=== PATIENT | female | born 1970 | race Caucasian/White ===

== ENCOUNTER 2018-02-25 08:39 | Day surgery (SDC) | payer BC ==
[2018-02-23 08:40] VITALS: BMI 42.5
[~2018-02-25 08:39] MED LIST: LACTATED RINGERS 1,000 ML IV SCH; LIDOCAINE 1% 20 ML VIAL (10MG/ML) FOR IV START INTRADERMA PRN
[2018-02-25 09:30] VITALS: TEMP 97.1
[2018-02-25] MEDS ORDERED: PROPOFOL 10 MG/ML 20 ML VIAL IV ONE (10:11)
--- NOTE | 2018-02-25 10:29 | P.PCN ---
Date of Procedure: 02/25/18 Procedure(s) Performed: BRIEF HISTORY: Patient is a 47-year-old pleasant white female, scheduled for an elective colonoscopy as a part of evaluation of change in bowel habits, intermittent rectal bleeding and lower abdominal pain for the last 2 months duration. She has family history of colon cancer diagnosed in her father at age 50. PROCEDURE PERFORMED: Colonoscopy and snare polypectomy. PREOPERATIVE DIAGNOSIS: Lower abdominal pain, change in bowel habits and intermittent rectal bleeding/family history of colon cancer. IV sedation per Anesthesia. PROCEDURE: After informed consent was obtained, the patient, was brought into the endoscopy unit. IV sedation was administered by Anesthesia under continuous monitoring. Digital rectal examination was normal. Initially the Olympus CF- 160 flexible video colonoscope was then inserted in the rectum, gradually advanced into the cecum without any difficulty. Careful examination was performed as the scope was gradually being withdrawn. Ileocecal valve and the appendiceal orifice were visualized and appeared normal. Prep was excellent. Mucosa of the cecum, ascending colon, transverse colon, descending colon, sigmoid colon, and rectum appeared normal. In the mid rectum there was a 5 mm sessile polyp removed by snare polypectomy. Retroflexion was performed in the rectum and no lesions were seen. The patient tolerated the procedure well. IMPRESSION: 5 m sessile rectal polyp status post polypectomy Rest of the colon appeared normal. RECOMMENDATIONS: Findings of this examination were discussed with the patient as well as a family. She was advised to follow with the biopsy results. If the biopsy shows a tubular adenoma, she can have a repeat coloscopy in 5 years.
[2018-02-25 10:58] VITALS: BP 107/59; PULSE 70; RESP 16
== END 2018-02-25 11:19 | disposition home or self-care (01) ==
LOC: ORWHC2ENDO 08:39
PROVIDERS: ATTEND Internal Medicine Gastroenterology
DX: K62.1 Rectal polyp (principal); Z80.0 Family history of malignant neoplasm of digestive organs; I10 Essential (primary) hypertension; Z90.5 Acquired absence of kidney; Z79.899 Other long term (current) drug therapy
CPT/HCPCS: 81025; 88305; 45385; J2704

== ENCOUNTER → 2018-04-15 | Outpatient (CLI) | payer BC ==
--- NOTE | 2018-04-15 19:43 | CONS ---
CONSULTATION REASON FOR CONSULTATION: Sleep apnea. This is a 47-year-old female patient, obese who is coming in due to concerns of sleep apnea. The patient has been excessively sleepy. She tells me that she can fall asleep at any time. She takes naps during the day as the patient feels very drowsy and sleepy. She typically goes to bed around 10:00 pm, wakes up at 5:00 a.m. in the morning and she gets up non refreshed. Her sleep is fragmented and she wakes up several times in the middle of night to use the bathroom and urinate. She prefers to sleep on her side. Her [place] score is at 20. She snores very loud and this has been confirmed by family members. Unsure if she quits breathing. She does have nocturia which is obviously another concern. She is interested in pursing diagnosis of sleep apnea. This was suggested to her by primary care physician and her chief electrician. She sees Dr. Yin for frequent episodes of SVT that is becoming more abundant and frequent lately. She is being considered for ablation and she is scheduled to have a SVT ablation on 04/30/2018. PAST MEDICAL HISTORY: Obesity, hypertension and SVT. PAST SURGICAL HISTORY: Includes kidney donation. 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 The surgery was done at [facility]. She has a single kidney for now. DRUG ALLERGIES: Not known. MEDICATIONS ARE: Atenolol 25 mg 1 tablet a day. SOCIAL HISTORY: Nonsmoker. No history of alcohol. No history of IV drugs. FAMILY HISTORY: Father had chronic renal failure and he 40 days after transplantation. REVIEW OF SYSTEM: 12-point review of systems was done. She is obese. Weight has been stable. She is snoring loud. Occasionally grinds her teeth. Wakes up with dry mouth. No anxiety or panic attacks. No palpitations. No heartburn. No nocturnal shortness of breath, chest pain or angina. No depression. No anxiety. No claustrophobia. No anxiety or panic attacks. No night terrors, no nightmares. No sleep paralysis. No hallucinations. No cataplexy. PHYSICAL EXAMINATION: VITAL SIGNS: BP 133/81, pulse 72, respirations 16, temperature 97.9. Saturation 99% on room air. Weight is 280. Height 5 feet 6 inches, [place] score is 20. BMI 44.5, neck size 16 inches. GENERAL APPEARANCE: Calm and comfortable. HEENT: Head is atraumatic, normocephalic. NECK: Short supple, crowding of the posterior pharynx, Mallampati class 4. LUNGS: Clear to auscultation. HEART: Sounds regular rate and rhythm. Normal S1, S2. No S3. No S4. No murmurs. ABDOMEN is soft, nontender. No organomegaly. EXTREMITIES: No edema. No cyanosis or clubbing. IMPRESSION: 1. Hypersomnia under investigation highly suspicious for obstructive sleep apnea. Current [place] score is 20. 2. Loud snoring. 3. Nocturia. 4. Obesity with a BMI of 44.5. 5. Supraventricular tachycardias frequent, awaiting cardiac ablation. 6. Hypertension. 7. Single kidney as the patient has donated her right kidney in the past. PLAN: 1. Encourage weight loss. 2. Proceed with ablation of SVT. 3. Proceed with a home sleep study to evaluate this patient for obstructive sleep apnea and if diagnosis is confirmed, the patient will be a good candidate for CPAP therapy based on the fact that she is quite symptomatic for her disease. 4. Implement good sleep hygiene measures. 5. Avoid alcoholic beverages late at night time. 6. Sleep in a sidewise body position. 7. We will continue to follow. MMODL / IJN: [id number] /
== END | disposition home or self-care (01) ==
LOC: SLEEP 13:41
PROVIDERS: ATTEND Internal Medicine Critical Care Medicine
DX: R06.83 Snoring (principal); R35.1 Nocturia; E66.9 Obesity, unspecified; Z68.41 Body mass index [BMI] 40.0-44.9, adult; I47.1 Supraventricular tachycardia; I10 Essential (primary) hypertension
CPT/HCPCS: 99211

== ENCOUNTER 2018-04-30 10:52 | Day surgery (SDC) | payer BC ==
[2018-04-27 14:28] VITALS: BMI 41.8
[2018-04-30 11:59] LABS: Anisocytosis Slight; Basophils % (A) 0 %; Eosinophils # (A) 0.1 k/uL (0-0.7); Eosinophils % (A) 2 %; HCT 35.4 % (34.0-46.0); HGB 11.8 gm/dL (11.4-16.0); Lymphocytes # (A) 1.4 k/uL (1.0-4.8); Lymphocytes % (A) 24 %; MCH 24.9 pg (25.0-35.0); MCHC 33.2 g/dL (31.0-37.0); MCV 74.8 fL (80.0-100.0); Mean Platelet Volume 7.4; Microcytosis Moderate; Monocytes # (A) 0.4 k/uL (0-1.0); Monocytes % (A) 7 %; Neutrophils # (A) 3.8 k/uL (1.3-7.7); Neutrophils % (A) 64 %; Platelet Count 325 k/uL (150-450); RBC 4.73 m/uL (3.80-5.40); RDW 17.3 % (11.5-15.5); WBC 5.9 k/uL (3.8-10.6)
[2018-04-30] MEDS ORDERED: SODIUM CHLORIDE 0.9% 1,000 ML IV ONE (12:01)
[2018-04-30 12:10] LABS: Anion Gap 9 mmol/L; Blood Urea Nitrogen 11 mg/dL (7-17); Calcium 9.9 mg/dL (8.4-10.2); Carbon Dioxide 29 mmol/L (22-30); Chloride 102 mmol/L (98-107); Glucose 85 mg/dL (74-99); Potassium 4.9 mmol/L (3.5-5.1); Sodium 140 mmol/L (137-145)
[2018-04-30] MEDS ORDERED: MIDAZOLAM 2 MG/2 ML VIAL ONE (12:58)
[2018-04-30] MEDS ORDERED: PROPOFOL 10 MG/ML 20 ML VIAL IV ONE (12:58)
[2018-04-30] MEDS ORDERED: fentaNYL (PF) 50 MCG/ML 2 ML AMP ONE (12:58)
[2018-04-30] MEDS ORDERED: ISOPROTERENOL 250 MCG/1.25 ML SYR IV ONE (12:58)
[2018-04-30] MEDS ORDERED: ACETAMINOPHEN IV (For NPO) 1,000 MG in EMPTY BAG 1 BAG IVPB ONE (15:16)
[2018-04-30] MEDS ORDERED: HYDROcodone/APAP 5-325MG 1 EACH TAB PO PRN (15:16)
[2018-04-30] MEDS ORDERED: ACETAMINOPHEN TAB 325 MG TAB PO PRN (15:16)
[2018-04-30] MEDS: SODIUM CHLORIDE 0.9% 1,000 ML IV SCH (15:43)
[2018-04-30] MEDS: LACTATED RINGERS 1,000 ML IV SCH (15:43)
--- NOTE | 2018-04-30 15:46 | CE ---
CARDIAC ELECTROPHYSIOLOGY REPORT Sheila has a history of recurrent palpitations and both atrial and ventricular arrhythmias were documented . She underwent diagnostic EP study just to look for any inducible sustained atrial tachycardias, PVCs, nonsustained VT and atrial fibrillation. Patient was brought to the EP lab in a fasting state. Written informed consent was obtained prior to the procedure. The left shoulder area was prepped and draped as per protocol and 1% lidocaine was used for local anesthesia. Three venous sheaths were placed in the right femoral vein. Via these, diagnostic catheters were placed, initially in the high right atrium, His bundle and RV. Later a coronary sinus catheter was placed in the coronary sinus for coronary sinus pacing and recording. Baseline measurements were as follows and are normal: Sinus cycle length 867 milliseconds, NV interval 163 milliseconds, QRS 97 milliseconds, QT 420 milliseconds. AH interval 63 milliseconds, HV interval 44 milliseconds. Sinus node recovery times at 600, 500 and 400 milliseconds were 1400, 1224 and 1111 milliseconds. Corresponding corrected sinus node recovery times were within normal limits. AV node Wenckebach block 390 milliseconds. No evidence of slow pathway conduction. No delta waves. VA Wenckebach block greater than 600 in the baseline state. Burst stimulation was performed in the right ventricle from 400 milliseconds down to 250 milliseconds. No arrhythmia was induced. Ventricular extrastimulation was performed with double extrastimuli for [address] No arrhythmia was induced. Isuprel was started wide open and then at 2 mcg. AV node Wenckebach block improved to 480 milliseconds. There was no evidence of VA conduction. AV node ERP 400/230 milliseconds. Atrial and ventricular stimulation up to double extrastimuli was performed. Burst stimulation was performed from the right ventricle and coronary sinus pacing was performed. AV node Wenckebach block at 350 milliseconds. Atrial extrastimulation was performed. Burst stimulation was performed from the coronary sinus. No sustained arrhythmia was induced. All catheters were then removed and the patient was transferred back to Telemetry. RESULT: Diagnostic EP study revealin. Normal sinus node function. 2. Normal AV node function without evidence for dual AV kendall physiology. 3. No evidence for any accessory pathway conduction. 4. No VA conduction, either at baseline or on high-dose Isuprel. 5. No inducible atrial tachycardia or atrial fibrillation. 6. No inducible sustained or non-sustained ventricular tachycardia. PLAN: Continue atenolol. Patient was reassured. MMODL / IJN: [id number] /
[2018-04-30] MEDS ORDERED: ATENOLOL 25 MG TAB PO SCH (21:00)
[2018-05-01] MEDS: LACTATED RINGERS 1,000 ML IV SCH (04:41)
[2018-05-01] MEDS: SODIUM CHLORIDE 0.9% 1,000 ML IV SCH (04:41)
[2018-05-01 08:18] VITALS: BP 140/79; PULSE 86; TEMP 98.2
[2018-05-01 08:49] VITALS: RESP 0
--- NOTE | 2018-05-01 09:07 | DS ---
DISCHARGE SUMMARY Sheila Sanderson is a 47-year-old female who has history of palpitation. She underwent diagnostic EP study, which did not reveal any atrial fibrillation or SVT. She is doing well today. Her groin has healed well. There is mild tenderness, but no swelling. Heart sounds are normal. Breath sounds are clear. No JVD. No lower extremity edema. Vitals are stable. IMPRESSION: Recurrent palpitations (PACs, atrial couplets and triplets) intermittently frequent. SUGGEST: Atenolol 25 mg p.o. daily. Follow up in the office in a week's time for groin check. MMODL / IJN: [id number] /
== END 2018-05-01 10:05 | disposition home or self-care (01) ==
LOC: CATHEP 10:52 → 3OBS 14:33 → CATHEP 05-01 10:05
PROVIDERS: ATTEND Internal Medicine Clinical Cardiac Electrophysiology
DX: I48.0 Paroxysmal atrial fibrillation (principal); I47.1 Supraventricular tachycardia; I10 Essential (primary) hypertension; Z79.899 Other long term (current) drug therapy; Z90.5 Acquired absence of kidney
CPT/HCPCS: 93623; 93620; 80048; 85025; 81025; C1894; C1769 ×2; C1730 ×2; J2250; J3010; J2704

== ENCOUNTER → 2019-03-08 | Outpatient (CLI) | payer BC ==
--- NOTE | 2019-03-09 13:38 | MM ---
Reason for exam: screening (asymptomatic). Last mammogram was performed 4 years and 4 months ago. Physical Findings: A clinical breast exam by your physician is recommended on an annual basis and results should be correlated with mammographic findings. MG Screening Mammo w CAD Bilateral CC and MLO view(s) were taken. Prior study comparison: October 24, 2014, mammogram, performed at [facility]. There are scattered fibroglandular densities. No suspicious abnormality. No significant changes when compared with prior studies. ASSESSMENT: Negative, BI-RAD 1 RECOMMENDATION: Routine screening mammogram of both breasts in 1 year.
== END | disposition home or self-care (01) ==
LOC: RADMAMWWP 15:18
PROVIDERS: ATTEND Family Medicine
DX: Z12.31 Encounter for screening mammogram for malignant neoplasm of breast (principal)
CPT/HCPCS: 77067

== ENCOUNTER → 2021-05-11 | Outpatient (CLI) | payer BC ==
--- NOTE | 2021-05-16 14:38 | MM ---
Reason for exam: screening (asymptomatic). Last mammogram was performed 2 years and 2 months ago. History: Took hormonal contraceptives for 2 years. Physical Findings: A clinical breast exam by your physician is recommended on an annual basis and results should be correlated with mammographic findings. MG Screening Mammo w CAD Bilateral CC and MLO view(s) were taken. Prior study comparison: March 08, 2019, bilateral MG screening mammo w CAD. October 24, 2014, mammogram, performed at [facility]. There are scattered fibroglandular densities. No significant changes when compared with prior studies. ASSESSMENT: Negative, BI-RAD 1 RECOMMENDATION: Routine screening mammogram of both breasts in 1 year.
== END | disposition home or self-care (01) ==
LOC: RADMAMWWP 10:02
PROVIDERS: ATTEND Family Medicine
DX: Z12.31 Encounter for screening mammogram for malignant neoplasm of breast (principal); Z78.0 Asymptomatic menopausal state
CPT/HCPCS: 77067

== ENCOUNTER 2021-05-18 06:18 | Day surgery (SDC) | payer BC ==
[2021-05-15 15:35] VITALS: BMI 45.6
[~2021-05-18 06:18] MED LIST changes: +DEXAMETHASONE SOD PHOSPHATE 4 MG/ML 1 ML VIAL IV ONE; -LIDOCAINE 1% 20 ML VIAL (10MG/ML) FOR IV START INTRADERMA PRN; +MIDAZOLAM 2 MG/2 ML VIAL IV PRN; +ONDANSETRON 4 MG/2 ML VIAL IVP ONE; +SCOPOLAMINE 1.5MG/72HR PATCH TRANSDERM ONE; +ceFAZolin 3 GM in SODIUM CHLORIDE 0.9% 100 ML IVPB PRN
[2021-05-18] MEDS ORDERED: fentaNYL (PF) 50 MCG/ML 2 ML AMP IVP ONE ×2 (07:29→07:39)
[2021-05-18] MEDS ORDERED: HYDROmorphone (PF) 1 MG/ML ONE (08:04)
[2021-05-18] MEDS ORDERED: DEXAMETHASONE SOD PHOSPHATE 4 MG/ML 1 ML VIAL ONE (08:04)
[2021-05-18] MEDS ORDERED: PROPOFOL 10 MG/ML 20 ML VIAL IV ONE (08:04)
[2021-05-18] MEDS ORDERED: SUCCINYLCHOLINE CHLORIDE 100 MG/5 ML SYR IV ONE (08:04)
[2021-05-18] MEDS ORDERED: ROPIVACAINE 5 MG/ML 30 ML VIAL ONE (08:04)
[2021-05-18] MEDS ORDERED: fentaNYL (PF) 50 MCG/ML 2 ML AMP ONE (08:04)
[2021-05-18] MEDS ORDERED: ROCURONIUM 10 MG/ML (5 ML VIAL) IV ONE (08:04)
[2021-05-18] MEDS ORDERED: MIDAZOLAM 2 MG/2 ML VIAL ONE (08:04)
[2021-05-18] MEDS ORDERED: LIDOCAINE 1% INJ 10MG/ML (20 ML MDV) ONE (08:04)
[2021-05-18] MEDS ORDERED: ceFAZolin 1,000 MG in SODIUM CHLORIDE 0.9% 1,000 ML IRRIGATION ONE (08:10)
--- NOTE | 2021-05-18 08:39 | P.ANPRN ---
Procedure Note - Anesthesia - Nerve Block Performed Left Adductor Canal Single Time Out Performed: Yes Date of Procedure: 05/18/21 Procedure Start Time: Procedure Stop Time: : Location of Patient: PreOp Indication: Requested by Surgeon Specifically requested for management of pain by DrTobin: Raymundo Robertson Sedation Type: Sedate with meaningful contact maintained Preparation: Sterile Prep Position: Supine Needle Types: Pajunk Needle Gauge: 21 Ultrasound used to visualize needle placement: Yes Ultrasound used to observe medication spread: Yes Injectate: 0.5% Ropivacaine (see comment for volume) (20 ml plus Dexamethason 4 mg) Blood Aspirated: No Pain Paresthesia on Injection Noted: No Resistance on Injection: Normal Image Stored and Saved: Yes Events: Uneventful and Well Tolerated
--- NOTE | 2021-05-18 08:40 | P.ANPRN ---
Procedure Note - Anesthesia - Nerve Block Performed Left Popliteal Single Time Out Performed: Yes Date of Procedure: 05/18/21 Procedure Start Time: 07:32 Procedure Stop Time: 07:37 Location of Patient: PreOp Indication: Requested by Surgeon Specifically requested for management of pain by DrTobin: Raymundo Robertson Sedation Type: Sedate with meaningful contact maintained Preparation: Sterile Prep Position: Right Lateral Needle Types: Pajunk Needle Gauge: 21 Ultrasound used to visualize needle placement: Yes Ultrasound used to observe medication spread: Yes Injectate: 0.5% Ropivacaine (see comment for volume) (20 ml plus Dexamethasone 4 mg) Blood Aspirated: No Pain Paresthesia on Injection Noted: No Resistance on Injection: Normal Image Stored and Saved: Yes Events: Uneventful and Well Tolerated
[2021-05-18] MEDS ORDERED: LACTATED RINGERS 1,000 ML IV ONE (09:59)
[2021-05-18 10:24] VITALS: TEMP 97.4
--- NOTE | 2021-05-18 10:42 | P.OP ---
Date of Procedure: 05/18/21 Preoperative Diagnosis: 1. Injury to posterior tibial tendon left foot and ankle 2. 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 Same 2. Same 3. Same Procedure(s) Performed: 1. Flexor digitorum longus tendon transfer left foot and ankle 2. Meehan calcaneal osteotomy left foot 3. Gastroc recession left leg Implants: 5.5 x 19 mm swivel lock anchor 10 mm x 22 mm x 22 mm prefabricated Meehan allograft 18 mm compression staple Anesthesia: RONALD Surgeon: Raymundo Robertson Estimated Blood Loss (ml): 10 Pathology: none sent Condition: stable Disposition: PACU Indications for Procedure: Patient presented with pain and swelling along the medial hindfoot and ankle on the left side. Patient indicated a previous injury. The posterior tibial tendon was tender to palpation with noted effusion. Patient also had pronation deformity of the left foot. MRI showed interstitial tearing of the posterior tibial tendon with surrounding fluid. Patient failed to respond to conservative therapy. The decision for surgery was then made Operative Findings: Severe thickening and degeneration of the posterior tibial tendon distal to the medial malleolus Description of Procedure: Prior to the patient being brought to the operating room anesthesia administered a nerve block on the left lower extremity under ultrasonic guidance and mild sedation. His then brought into the operating room and placed on table supine position. Timeout was taken to confirm correct patient identifiers, correct procedure, and correct side of surgery. When the room was in agreement the patient was induced and intubated for general anesthetic. Then a well-padded tourniquet was placed on the left thigh. A bump was placed underneath the left hip to internally rotate the left leg. And then the left leg was prepped and draped in the usual manner. The leg was exsanguinated the knee slightly flexed and the tourniquet inflated to 300 mmHg. Was first directed over the lateral hindfoot where a linear incision was made over the anterior process of the calcaneus. The incision was deepened down to the subcutaneous tissue careful to identify, avoid, and retract any neurovascular structures and cauterize any bleeding vessels. Blunt dissection was continued down to the peroneal tendon sheath. The soft tissue just superior to the peroneal tendon sheath was incised down to bone and then the peroneal tendons were lifted in one composition floor layer the lateral aspect of the anterior process the calcaneus. There was good exposure of the anterior process and at that point the calcaneal cuboid joint was identified. A ruler was used to naresh an area between 10 and 12 mm proximal to the calcaneocuboid joint. An osteotomy was then performed through the naresh straight lateral to medial and dorsal to plantar. An osteotome was used to separate the bony fragments and free any soft tissue adhesions. Guidewires were placed on either side of the osteotomy and then a bone distractor was used to open up the osteotomy. Various sizers for the evidence grafts were used and was determined that the 10 mm x 22 mm x 22 mm implant was most appropriate. The allograft was then placed into antibiotic saline for an appropriate amount of time and then inserted into the osteotomy and impacted so that the cortices were matching. The anterior portion of the osteotomy was checked to make sure didn't migrate superiorly and was aligned accordingly. The distractor pins were removed and the drill holes for an 18 mm compression staple were made staple was inserted into these drill holes and then impacted to proper depth and then released so that the legs could compress across the graft. Or scopic imaging confirmed proper placement of the graft as well as the staple and overall correct alignment of the lateral column of the foot. The wound is irrigated with antibiotic saline. Deep closure was done with 0 Vicryl. Subcu closure done with 4-0 Monocryl. Skin closure done with maricruz. At that point the wedge underneath the left hip was removed so that the leg would externally rotate. The knee was flexed and the leg further externally rotated and then the gastroc muscle belly was palpated. An incision was started approximately 5-6 cm distal to the gastroc muscle belly and extending distally. The incision was deepened down to the saphenous tissue careful to identify, avoid, and retract any neurovascular structures and cauterize any bleeding vessels. Dissection was continued down to the deep fascia which was carefully incised and then blunt dissection was done until the aponeurosis of the gastroc muscle belly was identified. Utilizing the finger for dissection the soft tissue was off the aponeurosis from medial to lateral. The aponeurosis was then grasped and then a 15 blade was used to create the gastroc recession through the tendon and avoiding as much trauma as possible to the underlying muscle belly. Once completed the ankle was dorsiflexed and gapping w as noted at the recession area indicating a full release. The wound is irrigated with antibiotic saline. Subcutaneous closure was done with 4-0 Monocryl and skin closure done with maricruz. Then attention was directed over the medial hindfoot and ankle area where an incision was made along the course of the posterior tibial tendon beginning superior to the medial malleolus and ending near the navicular insertion. The incision was deepened down to the saphenous tissue careful to identify, avoid, and retract any neurovascular structures and cauterize any bleeding vessels. Blunt dissection was continued down to the sheath over the posterior tibial tendon. The sheath was opened beginning at the insertion and extending proximal to the medial malleolus. There was significant amount of inflammatory tissue within the tendon sheath and marked thickening of the tendon. Deep to the posterior tibial tendon ankle area the fascia was opened to reveal the flexor digitorum longus tendon in a [id number] anastomosis of the posterior tibial tendon was performed. Then the posterior tibial tendon was transected just distal to the anastomosis and then traced to its navicular insertion were was also removed. It was taken from the surgical field. A small incision was then made to the deep fascia to identify the tendon of the flexor digitorum longus in the mid arch area. The soft tissue was released around the tendon down to the Knot of Chris at which point the flexor digitorum longus tendon was released and delivered in the surgical field. A whipstitch was then placed on the distal 20 mm of tendon. And then under direct fluoroscopic visualization a guidewire for the reamer was then placed on the navicular tuberosity and advanced into the body under direct fluoroscopic visualization to avoid the talonavicular and navicular cuneiform joints. Once the pin was properly placed 6 mm reamer was placed over the pin and then driven to a depth of approximately 20 mm. Fluoroscopy was again used to make sure that the reamer did not penetrate any of the above-mentioned joints. The guidewire and reamer were removed and then a lasso was created and the 5.5 mm anchor to The Distal End of the Flexor Digitorum Longus Tendon and with Proper Tensioning Techniques and Holding the Foot Slightly Neutral the Tendon Was Inserted into the Drill Hole in the Navicular and Impacted to Proper Depth and Then the Interference Screw Was Advanced to Lock the Tendon Place. The Manager Hospitality Was Removed and the Tendon Was Checked for tension which appeared appropriate. The sutures are then tied and cut. The wound irrigated with antibiotic saline. The deep closure was done with 0 Vicryl. Subcu closure done with 4-0 Monocryl. And skin closure done with maricruz. Magdaleno jumpstart dressings were placed over all the incisions and then a bulky dressing applied to left foot and ankle. The tourniquet was released and capillary refill return to all digits on the left foot. The patient was then placed in a well-padded, well molded, plaster posterior mold sugar tong splint. The foot was held in slight inversion and ankle neutral while drying. Then the patient was reversed from general anesthetic and taken recovery with vital signs stable.
--- NOTE | 2021-05-18 10:50 | XR ---
EXAMINATION TYPE: XR foot limited LT, FL guidance operating room DATE OF EXAM: 05/18/2021 COMPARISON: NONE HISTORY: 50-year-old female left ankle tendon repair FINDINGS: Single intraoperative fluoroscopic view left AP mid to hindfoot. A large surgical staple is present l aterally. Surgical intervention at the level of the navicular. FLUOROSCOPY Fluoroscopy time of 22 seconds was used during left ankle tendon repair. 1 image/s document/s the fawn burks. IMPRESSION: Intraoperative fluoroscopy as above.
[2021-05-18] MEDS: HYDROmorphone 0.5 MG/0.5 ML SYRINGE IVP PRN ×3 (10:52→11:02)
[2021-05-18] MEDS ORDERED: ONDANSETRON 4 MG/2 ML VIAL IVP ONE (11:12)
[2021-05-18 11:27] VITALS: RESP 16
[2021-05-18 11:41] VITALS: BP 125/76; PULSE 73
--- NOTE | 2021-05-26 05:59 | CDI ---
The Block done at the posterior aspect of the Knee ,to block the tibial nerve,and the Common Peroneal nerve,to help post op pain control, in the foot, ankle Outpatient Documentation Clarification Form Date: 05/26/21 CDS/Painting Instructor Name: Leatha Johnson Phone: If any questions, call Tatyana Beckett Manager People at [phone] Patient Name: Sheila Sanderson Admit Date: 05/18/21 Discharge Date: 05/18/21 ATTENTION: The [facility] Coding Staff appreciate your assistance in clarifying documentation. Please respond to the clarification below the line at the bottom and electronically sign. The [facility] Coding staff will review the response and follow-up if needed. Please note: Queries are made part of the Legal Health Record. If you have any questions, please contact the Manager People. Dear Dr. Moran, Please provide clarification as to the exact area for the popliteal nerve block. Please specify as below. Greatest specificity is needed for medical necessity support. popliteal block procedure note, without a description of the anatomy is not helpful in determining the correct code to report. A popliteal fossa injection is reported with CPT code 00738 (sciatic nerve), whereas a saphenous popliteal is reported with CPT code 47379 (other peripheral nerve block) Thank you for your kind consideration. MTDD
== END 2021-05-18 12:20 | disposition home or self-care (01) ==
LOC: OR 06:18
PROVIDERS: ATTEND Podiatrist
DX: S96.812A Strain of other specified muscles and tendons at ankle and foot level, left foot, initial encounter (principal); X58.XXXA Exposure to other specified factors, initial encounter; M21.6X2 Other acquired deformities of left foot; M19.072 Primary osteoarthritis, left ankle and foot; I10 Essential (primary) hypertension; E78.5 Hyperlipidemia, unspecified; G47.33 Obstructive sleep apnea (adult) (pediatric); K21.9 Gastro-esophageal reflux disease without esophagitis; R00.2 Palpitations; Z98.890 Other specified postprocedural states; Z83.3 Family history of diabetes mellitus; Z82.49 Family history of ischemic heart disease and other diseases of the circulatory system; Z97.3 Presence of spectacles and contact lenses; Z79.899 Other long term (current) drug therapy
CPT/HCPCS: 27691; 28300; 64447; 81025; 64445; 76942; 73620; C1713 ×3; J2250; J1100; J0690 ×2; J2405; J2001; J3010; J1170 ×2; J2795; J0330; J2704

== ENCOUNTER → 2021-05-21 | Outpatient (CLI) | payer BC ==
--- NOTE | 2021-05-21 18:31 | US ---
EXAMINATION TYPE: US venous doppler duplex LE LT DATE OF EXAM: 05/21/2021 6:27 PM COMPARISON: NONE CLINICAL HISTORY: I80.9. Pain. Thrombophlebitis of unspecified site per code on order. No hx of DVT. Patient does not take blood thinners. SIDE PERFORMED: Left TECHNIQUE: The lower extremity deep venous system is examined utilizing real time linear array sonog antonietta with graded compression, doppler sonography and color-flow sonography. VESSELS IMAGED: Common Femoral Vein Deep Femoral Vein Greater Saphenous Vein * Femoral Vein Popliteal Vein Small Saphenous Vein * Proximal Calf Veins (* superficial vessels) Exam is slightly limited due to patient body habitus. Left Leg: No evidence of DVT in veins imaged at this time. IMPRESSION: No evidence of deep vein thrombosis in the left leg.
== END | disposition home or self-care (01) ==
LOC: RADUSWWP 17:46
PROVIDERS: ATTEND Podiatrist
DX: I80.9 Phlebitis and thrombophlebitis of unspecified site (principal)

== ENCOUNTER → 2022-05-29 | Outpatient (CLI) | payer BC ==
--- NOTE | 2022-05-30 10:25 | MM ---
Reason for Exam: Screening (asymptomatic). Last screening mammogram was performed 12 month(s) ago. Patient History: Menarche at age 11. First Full-Term at age 17. Patient used Hormonal Contraceptives for 2 years. Risk Values: Daxa 5 year model risk: 0.8%. NCI Lifetime model risk: 6.3%. Prior Study Comparison: 10/24/2014 Screening Mammogram, [facility]. 03/08/2019 Bilateral Screening Mammogram, [facility]. 05/11/2021 Bilateral Screening Mammogram, [facility]. Tissue Density: The breast tissue is almost entirely fat. Findings: Analyzed By CAD. There is no suspicious group of microcalcifications or new suspicious mass in either breast. Overall Assessment: Negative, BI-RAD 1 Management: Screening Mammogram of both breasts in 1 year. A clinical breast exam by your physician is recommended on an annual basis and results should be correlated with mammographic findings. Electronically signed and approved by: Isaiah Wise DO
== END | disposition home or self-care (01) ==
LOC: RADMAMWWP 15:58
PROVIDERS: ATTEND Family Medicine
DX: Z12.31 Encounter for screening mammogram for malignant neoplasm of breast (principal)
CPT/HCPCS: 77067

== ENCOUNTER → 2024-08-09 | Outpatient (CLI) | payer BC ==
--- NOTE | 2024-08-10 14:20 | MM ---
Reason for Exam: Screening (asymptomatic). Last screening mammogram was performed 12 month(s) ago. Patient History: Menarche at age 11. First Full-Term at age 17. Postmenopausal. Patient used Hormonal Contraceptives for 2 years. Risk Values: Daxa 5 year model risk: 0.8%. NCI Lifetime model risk: 6.1%. Prior Study Comparison: 05/11/2021 Bilateral Screening Mammogram, [facility]. 05/29/2022 Bilateral MG screening mammo w CAD, [facility]. 08/07/2023 Bilateral MG screening mammo w CAD, [facility]. Tissue Density: The breasts are almost entirely fatty. Findings: Analyzed By CAD. Right breast: There is no suspicious group of microcalcifications or new suspicious mass. Left breast: There is no suspicious group of microcalcifications or new suspicious mass. Overall Assessment: Negative, BI-RAD 1 Management: Screening Mammogram of both breasts in [address] [facility] will attempt to contact patient to return for supplemental views and ultrasound if indicated. Patient should continue monthly self-breast exams. A clinical breast exam by your physician is recommended on an annual basis. This exam should not preclude additional follow-up of suspicious palpable abnormalities. Note on Daxa scores and lifetime risk: 1. A Daxa score greater than 3% is considered moderate risk. If this is the case, consider specialist referral to assess eligibility for a risk reducing agent. 2. If overall lifetime risk for the development of breast cancer is 20% or higher, the patient may qualify for future screening with alternating mammogram and breast MRI. [facility], , 08/10/2024 2:17 PM. Electronically signed and approved by: Isaiah Wise DO
== END | disposition home or self-care (01) ==
LOC: RADMAMWWP 16:15
PROVIDERS: ATTEND Family Medicine
DX: Z12.31 Encounter for screening mammogram for malignant neoplasm of breast
CPT/HCPCS: 77067